=== PATIENT | female | born 1955 | race Caucasian/White ===

== ENCOUNTER 2023-09-02 06:40 | Day surgery (SDC) | payer MEDICARE, BC ==
[2023-09-02] MEDS ORDERED: fentaNYL 100 MCG/2 ML SDV IV ONE (06:41)
[2023-09-02] MEDS ORDERED: Propofol 200 MG/20 ML SDV IV ONE (06:41)
[2023-09-02] MEDS ORDERED: Midazolam 1 MG/ML 2 ML SDV IV ONE (06:41)
[2023-09-02] MEDS ORDERED: Sodium Chloride 0.9% 10 ML Syringe FLUSH PRN (06:45)
[2023-09-02] MEDS: Lactated Ringers 1,000 ML IV SCH (07:30)
[2023-09-02] MEDS: Simethicone Drops 40 MG/0.6 ML 30 ML Bottle ONE (07:47)
[2023-09-02 09:56] VITALS: BP 131/72; PULSE 60
== END 2023-09-02 09:56 | disposition home or self-care (01) ==
LOC: FB.SDS 06:40
PROVIDERS: ATTEND Surgery
DX: Z12.11 Encounter for screening for malignant neoplasm of colon (principal); I10 Essential (primary) hypertension; E78.5 Hyperlipidemia, unspecified; E06.3 Autoimmune thyroiditis; K21.9 Gastro-esophageal reflux disease without esophagitis; Z86.010 Personal history of colon polyps; Z80.0 Family history of malignant neoplasm of digestive organs; Z79.890 Hormone replacement therapy; Z79.899 Other long term (current) drug therapy
CPT/HCPCS: 00812; A9270-GY; J2250; J2704; J3010; J7120

== ENCOUNTER 2024-02-12 14:22 | Emergency (ER) | payer MEDICARE, BC ==
[2024-02-12] MEDS ORDERED: Amoxicillin/Clavulanate K 875-125 MG Tab PO ONE (14:23)
[2024-02-12] MEDS ORDERED: Lidocaine 2% 5 ML SDV INFILT ONE (14:23)
[2024-02-12] MEDS: Diphtheria,Pertussis(Acell),Tetanus Vaccine 0.5 ML Syringe IM ONE (15:50)
[2024-02-12 19:26] VITALS: BP 132/80; PULSE 92
== END 2024-02-12 16:25 | disposition home or self-care (01) ==
LOC: FB.ED 14:22
DX: S61.214A Laceration without foreign body of right ring finger without damage to nail, initial encounter (principal); S61.216A Laceration without foreign body of right little finger without damage to nail, initial encounter; E78.00 Pure hypercholesterolemia, unspecified; I10 Essential (primary) hypertension; E03.9 Hypothyroidism, unspecified; Z79.899 Other long term (current) drug therapy; Z88.2 Allergy status to sulfonamides; Z88.8 Allergy status to other drugs, medicaments and biological substances; W29.8XXA Contact with other powered hand tools and household machinery, initial encounter
CPT/HCPCS: 12002; 90471; 90715; 99282; A9270

== ENCOUNTER 2025-02-07 08:28 | Day surgery (SDC) | payer MEDICARE, BC ==
[2025-02-07] MEDS ORDERED: Propofol 200 MG/20 ML SDV IV ONE (08:29)
[2025-02-07] MEDS ORDERED: Sodium Chloride 0.9% 10 ML Syringe FLUSH PRN (08:30)
[2025-02-07] MEDS: Lactated Ringers 1,000 ML IV SCH (09:18)
[2025-02-07 11:00] VITALS: BP 120/67; PULSE 62
== END 2025-02-07 11:05 | disposition home or self-care (01) ==
LOC: FB.SDS 08:28
PROVIDERS: ATTEND Surgery
DX: Z12.11 Encounter for screening for malignant neoplasm of colon (principal); D12.2 Benign neoplasm of ascending colon; Z80.0 Family history of malignant neoplasm of digestive organs; I10 Essential (primary) hypertension; E03.9 Hypothyroidism, unspecified; E66.9 Obesity, unspecified; Z88.8 Allergy status to other drugs, medicaments and biological substances; Z68.29 Body mass index [BMI] 29.0-29.9, adult; Z86.0101 Personal history of adenomatous and serrated colon polyps; Z79.899 Other long term (current) drug therapy; Z79.890 Hormone replacement therapy
CPT/HCPCS: 45385; 88305; A9270; J2003; J2704; J7120; 00811